=== PATIENT | male | born 1990 ===

== ENCOUNTER 2020-08-18 03:25 | Emergency (ER) | payer OTHER ==
[2020-08-18 04:39] LABS: Basophils % (Auto) 0.1 % (0.0-1.8); Eosinophils # (Auto) 0.4 K/mm3 (0.0-0.4); Eosinophils % (Auto) 2.6 % (0.0-4.3); Hematocrit 48.6 % (35.5-45.6); Lymphocytes # (Auto) 1.6 K/mm3 (1.2-5.4); Lymphocytes % (Auto) 9.7 % (13.4-35.0); Mean Corpuscular HGB Conc 35 % (32-34); Mean Corpuscular Volume 87 fl (84-94); Monocytes # (Auto) 0.9 K/mm3 (0.0-0.8); Monocytes % (Auto) 5.8 % (0.0-7.3); Platelet Count 257 K/mm3 (140-440); Red Blood Count 5.62 M/mm3 (3.65-5.03); Red Cell Distribution Width 12.9 % (13.2-15.2)
[2020-08-18 05:35] LABS: Alanine Aminotransferase 33 units/L (7-56); Albumin 5.2 g/dL (3.9-5); BUN/Creatinine Ratio 17; Blood Urea Nitrogen 15 mg/dL (9-20); Calcium 10.2 mg/dL (8.4-10.2); Hemolysis Index 24
[2020-08-18] MEDS ORDERED: SODIUM CHLORIDE 0.9% 1000 ML 1,000 ML IV ONE (06:18)
[2020-08-18] MEDS ORDERED: ONDANSETRON 4 MG/2 ML INJ IV ONE (06:18)
[2020-08-18] MEDS ORDERED: MORPHINE 2 MG/1 ML INJ IV ONE (06:18)
--- NOTE | 2020-08-18 06:21 | Emergency Department Report ---
ED Abdominal Pain HPI - General Chief Complaint: Abdominal Pain Stated Complaint: CHEST PAIN Time Seen by Provider: 08/18/20 06:05 Source: patient Mode of arrival: Ambulatory Limitations: No Limitations - History of Present Illness Initial Comments: 29-year-old male, no past medical history, presents to ED with complaint of epigastric abdominal pain since last night. Patient states pain is sharp and stabbing. Nonradiating. He reports associated nausea, vomiting, and diarrhea. He denies fever. He denies any sick contacts. Patient denies any alcohol intake prior to symptom onset. MD Complaint: abdominal pain -: Last night Location: epigastric Radiation: none Migration to: no migration Severity: moderate Quality: stabbing Consistency: constant Improves With: other (Sitting upright) Worsens With: other (Lying supine) Associated Symptoms: nausea, vomiting, diarrhea. denies: fever - Related Data Previous Rx's Medication Instructions Recorded Last Taken Type Ciprofloxacin HCl 500 mg PO BID #14 tablet 08/18/20 Unknown Rx Dicyclomine [Bentyl] 20 mg PO QID PRN #20 tablet 08/18/20 Unknown Rx Ondansetron [Zofran Odt] 4 mg PO Q8HR PRN #20 tab.rapdis 08/18/20 Unknown Rx metroNIDAZOLE [Flagyl] 500 mg PO Q12HR #14 tab 08/18/20 Unknown Rx Allergies Allergy/AdvReac Type Severity Reaction Status Date / Time No Known Allergies Allergy Unverified 08/18/20 03:38 ED Review of Systems ROS: Stated complaint: CHEST PAIN Other details as noted in HPI Comment: All other systems reviewed and negative Constitutional: denies: chills, fever Gastrointestinal: abdominal pain, nausea, vomiting, diarrhea ED Past Medical Hx - Past Medical History Previous Medical History?: No - Surgical History Past Surgical History?: No - Social History Smoking Status: Unknown if ever smoked Substance Use Type: None - Medications Home Medications: Home Medications Medication Instructions Recorded Confirmed Last Taken Type Ciprofloxacin HCl 500 mg PO BID #14 tablet 08/18/20 Unknown Rx Dicyclomine [Bentyl] 20 mg PO QID PRN #20 tablet 08/18/20 Unknown Rx Ondansetron [Zofran Odt] 4 mg PO Q8HR PRN #20 tab.rapdis 08/18/20 Unknown Rx metroNIDAZOLE [Flagyl] 500 mg PO Q12HR #14 tab 08/18/20 Unknown Rx ED Physical Exam - General Limitations: No Limitations General appearance: alert, in no apparent distress - Head Head exam: Present: atraumatic, normocephalic - Eye Eye exam: Present: normal appearance, EOMI - ENT ENT exam: Present: mucous membranes moist - Neck Neck exam: Present: normal inspection - Respiratory Respiratory exam: Present: normal lung sounds bilaterally. Absent: respiratory distress - Cardiovascular Cardiovascular Exam: Present: regular rate, normal rhythm - GI/Abdominal GI/Abdominal exam: Present: soft, tenderness (Epigastric). Absent: distended - Extremities Exam Extremities exam: Present: normal inspection - Neurological Exam Neurological exam: Present: alert, oriented X3 - Psychiatric Psychiatric exam: Present: normal affect, normal mood - Skin Skin exam: Present: warm, dry, intact, normal color ED Course Vital Signs 08/18/20 08/18/20 08/18/20 03:34 05:47 06:00 Temperature 97.8 F Pulse Rate 76 76 Respiratory 18 21 Rate Blood Pressure 117/76 126/79 126/79 O2 Sat by Pulse 97 97 Oximetry 08/18/20 08/18/20 08/18/20 06:16 06:30 06:46 Temperature Pulse Rate 71 Respiratory 16 Rate Blood Pressure 126/79 126/79 126/79 O2 Sat by Pulse 98 98 100 Oximetry 08/18/20 08/18/20 08/18/20 07:00 07:16 07:30 Temperature Pulse Rate 60 64 70 Respiratory 17 14 18 Rate Blood Pressure 126/79 106/62 O2 Sat by Pulse 92 98 98 Oximetry 08/18/20 08/18/20 08/18/20 08:09 08:15 08:31 Temperature Pulse Rate 82 78 78 Respiratory 13 17 16 Rate Blood Pressure 117/81 118/65 115/71 O2 Sat by Pulse 98 97 96 Oximetry 08/18/20 08/18/20 08/18/20 08:45 09:01 09:15 Temperature Pulse Rate 81 86 78 Respiratory 16 19 14 Rate Blood Pressure 118/65 127/70 127/70 O2 Sat by Pulse 96 97 97 Oximetry ED Medical Decision Making - Lab Data Result diagrams: 08/18/20 03:45 08/18/20 03:45 - Radiology Data Radiology results: report reviewed, image reviewed - Medical Decision Making CT shows questionable thickening of the ascending colon with differential that includes normal findings versus mild colitis. Patient has WBCs of 16.2. Vital signs are stable. We will treat possible colitis with antibiotic therapy. Outpatient follow-up with GI has been recommended. Return precautions given. - Differential Diagnosis GERD, gastroenteritis, pancreatitis, bowel obstruction Critical care attestation.: If time is entered above; I have spent that time in minutes in the direct care of this critically ill patient, excluding procedure time. ED Disposition Clinical Impression: Colitis Disposition: DC- TO HOME OR SELFCARE Is pt being admited?: No Condition: Stable Instructions: Colitis Prescriptions: Dicyclomine [Bentyl] 20 mg PO QID PRN #20 tablet PRN Reason: abdominal pain Ciprofloxacin HCl 500 mg PO BID #14 tablet metroNIDAZOLE [Flagyl] 500 mg PO Q12HR #14 tab Ondansetron [Zofran Odt] 4 mg PO Q8HR PRN #20 tab.rapdis PRN Reason: Vomiting Referrals: PRIMARY CARE, [Primary Care Provider] - 3-5 Days [facility] [Provider Group] - 3-5 Days Time of Disposition: 08:56
--- NOTE | 2020-08-18 07:57 | Cat Scan Report ---
CT ABDOMEN AND PELVIS WITH CONTRAST HISTORY: abd pain UPPER MID ABD PAIN SINCE LAST NIGHT OMNIPAQUE 300 100ML. COMPARISON: None. TECHNIQUE: CT images of the abdomen and pelvis were obtained following administration of intravenous contrast. All CT scans at this location are performed using CT dose reduction for ALARA by means of automated exposure control. CONTRAST: 100 ml of intravenous contrast administered. FINDINGS: Lungs/bones: Lung bases are clear Abdomen/pelvis: The liver, spleen, adrenal glands, pancreas, gallbladder and upper GI tract appear n ormal. Bilateral kidneys appear normal. No bowel obstruction is identified. There is some questionabl e thickening of the ascending colon wall best seen on coronal image 65. There is incomplete distentio n. Small nodes are seen in the mesentery the right lower abdomen. No free fluid in the abdomen or pel vis. No acute bone findings are seen. Few calcifications are seen in the right hepatic lobe with a few hypodensities as well, nonspecific IMPRESSION: 1. Questionable mild thickening of the ascending colon. Differential considerations would include nor mal findings with incomplete distention versus mild colitis. Clinical correlation. 2. Liver is heterogeneous with multiple calcifications. Few tiny hypodensities too small to character ize. Signer Name: Curtis Granado MD Signed: 08/18/2020 7:52 AM Workstation Name: [id number]
[2020-08-18] MEDS ORDERED: ALUM-MAG HYDROXIDE-SIMETHICONE 200-200-20MG/5ML ORAL LIQD 30 ML PO ONE (08:19)
[2020-08-18] MEDS ORDERED: LIDOCAINE VISCOUS 2% 15 ML ORAL LIQD PO ONE (08:19)
[2020-08-18 09:19] VITALS: BP 127/70
[2020-08-18 09:28] LABS: Bacteria,Urine 1+ /HPF (Negative); Bilirubin,Urine NEG (Negative); Blood,Urine NEG (Negative); Color,Urine Yellow (Yellow); Mucus,Urine 1+ /HPF; Protein,Urine <15 mg/dL mg/dL (Negative); Urobilinogen,Urine < 2.0 mg/dL (<2.0)
== END 2020-08-18 09:22 | disposition home or self-care (01) ==
LOC: ED 03:25
DX: K52.9 Noninfective gastroenteritis and colitis, unspecified (principal); Z79.899 Other long term (current) drug therapy
CPT/HCPCS: 36415; 74177; 80053; 81001; 82150; 83690; 85025; 96361; 96374; 96375; 99284; J2270; J2405; J7030; Q9967